=== PATIENT | female | born 1965 | race Caucasian/White ===

== ENCOUNTER 2019-10-14 10:46 | Outpatient (CLI) | payer OTHER | END 2019-10-14 23:59 | disposition home or self-care (01) | LOC: CFH 10:46 | PROVIDERS: ATTEND Obstetrics & Gynecology | DX: Z12.31 Encounter for screening mammogram for malignant neoplasm of breast (principal) | CPT/HCPCS: 77063; 77067 ==

== ENCOUNTER 2020-11-03 08:27 | Outpatient (CLI) | payer OTHER | END 2020-11-03 23:59 | disposition home or self-care (01) | LOC: CFH 08:27 | PROVIDERS: ATTEND Obstetrics & Gynecology | DX: Z12.31 Encounter for screening mammogram for malignant neoplasm of breast (principal) | CPT/HCPCS: 77063; 77067 ==